=== PATIENT | female | born 1960 | race Caucasian/White ===

== ENCOUNTER 2017-12-17 11:12 | Emergency (ER) | payer MEDICAID ==
[~2017-12-17] VITALS: Ht 162.6 cm; Wt 63.5 kg
[2017-12-17 11:15] VITALS: BP 157/98
--- NOTE | 2017-12-17 11:19 | NUR ---
PT AMBULATED TO ER BED 12
--- NOTE | 2017-12-17 11:25 | NUR ---
57Y/F C/O LEFT TOP MOLAR PAIN RADIATING LEFT SIDE OF FACE X 2 DAYS, HAS NOT SEEN A DENTIST YET. DENIES N/V/D; SKIN IS PINK/WARM/DRY; AAOX4 WITH EVEN AND STEADY GAIT; PATIENT STATES PAIN OF 10/10 AT THIS TIME; VSS; PATIENT POSITIONED FOR COMFORT; HOB ELEVATED; BEDRAILS UP X2; BED DOWN. ER MD MADE AWARE OF PT STATUS.
[2017-12-17 11:41] VITALS: BP 156/97
--- NOTE | 2017-12-17 11:41 | NUR ---
Patient discharged with v/s stable. Written and verbal after care instructions given and explained. Patient alert, oriented and verbalized understanding of instructions. Ambulatory with steady gait. All questions addressed prior to discharge. ID band removed. Patient advised to follow up with PMD. Rx of NAPROSYN AND AMOXICILLIN given. Patient educated on indication of medication including possible reaction and side effects. Opportunity to ask questions provided and answered.
== END 2017-12-17 11:41 | disposition home or self-care (01) ==
LOC: MED 11:12
DX: K05.10 Chronic gingivitis, plaque induced (principal)
CPT/HCPCS: 99283

== ENCOUNTER 2019-02-03 20:36 | Emergency (ER) | payer MEDICAID ==
[~2019-02-03] VITALS: Ht 157.5 cm; Wt 72.3 kg
[2019-02-03 20:39] VITALS: BP 145/90
--- NOTE | 2019-02-03 20:42 | NUR ---
TO [facility] A/W BED , AMBULATORY
--- NOTE | 2019-02-03 20:58 | NUR ---
PT TAKEN TO BED 6
--- NOTE | 2019-02-03 21:10 | NUR ---
59 YO F BIB SON AND DAUGHTER PRESENTS TO ED C/O 04/18 LEFT SIDE FLANK PAIN X 2 DAYS. PT STATES PAIN IS CONSTANT BUT INCREASES WHILE WALKING. PT ALSO C/O MILD NAUSEA, NO VOMITING. PT DENIES FEVER, URINARY BURNING/PAIN OR HEMATURIA. PT STATES SHE HAS BEEN HAVING INTERMITTENT LOOSE STOOL X SEVERAL DAYS. --PT AWAKE, ALERT, CALM, COOPERATIVE. ANSWERING QUESTIONS APPROPRIATELY. BEHAVIOR AGE APPROPRIATE. -- SKIN PINK, WARM, DRY. BREATHING EVEN, UNLABORED. PMH-- DENIES RX-- DENIES
[2019-02-03] MEDS ORDERED: KETOROLAC 15 MG/ML VIAL IVP ONE (22:00)
--- NOTE | 2019-02-03 22:05 | NUR ---
PT REFUSING TORADOL 15 MG IVP. PT STATES "I DON'T WANT AN IV. I JUST WANT TO KNOW IF I HAVE AN INFECTION." DR. DONNELLY MADE AWARE.
[2019-02-03 22:42] LABS: BASOPHILS # (AUTO) 0.1 K/uL (0.00-0.22); EOSINOPHILS # (AUTO) 0.1 K/uL (0-0.4); EOSINOPHILS % (AUTO) 1.4 % (0.0-4.0); HEMATOCRIT 38.1 % (36-48); HEMOGLOBIN 12.8 g/dL (12.0-16.0); LYMPHOCYTES # (AUTO) 2.7 K/uL (2.5-16.5); LYMPHOCYTES % (AUTO) 30.5 % (20.5-51.1); MEAN CORPUSCULAR HEMOGLOBIN 30 pg (27-31); MEAN CORPUSCULAR HGB CONC 34 g/dL (33-37); MEAN CORPUSCULAR VOLUME 90.7 fL (80-94); MONOCYTES # (AUTO) 0.7 K/uL (0.8-1.0); MONOCYTES % (AUTO) 8.1 % (1.7-9.3); NEUTROPHILS # (AUTO) 5.1 K/uL (1.8-7.7); PLATELET COUNT (AUTO) 225 K/uL (140-450); RED CELL DISTRIBUTION WIDTH 12.5 % (11.6-13.7); WHITE BLOOD COUNT (AUTO) 8.7 K/uL (4.8-10.8)
[2019-02-03 22:47] LABS: APPEARANCE,URINE CLOUDY (CLEAR); BILIRUBIN,URINE NEGATIVE (NEGATIVE); BLOOD, URINE NEGATIVE (NEGATIVE); COLOR,URINE YELLOW (YELLOW); LEUKOCYTE ESTERASE ,URINE NEGATIVE (NEGATIVE); NITRITE, URINE NEGATIVE (NEGATIVE); PH,URINE 7.5 (5.0-9.0); UGLUCOSE NEGATIVE (NEGATIVE)
[2019-02-03 23:03] LABS: ANION GAP 11.9 (8-16); CARBON DIOXIDE 24.8 mmol/L (21-32); POTASSIUM 3.7 mmol/L (3.5-5.1)
[2019-02-03 23:15] LABS: ALBUMIN 4.1 g/dL (3.4-5.0); TOTAL BILIRUBIN 0.4 mg/dL (0.0-1.0)
[2019-02-03] MEDS ORDERED: NACL 0.9% 1,000 ML IV ONE (23:40)
--- NOTE | 2019-02-03 23:56 | NUR ---
Dr. Robison examining patient.
[2019-02-04] VITALS: BP 145/90
--- NOTE | 2019-02-04 | NUR ---
Patient discharged with v/s stable. Written and verbal after care instructions given and explained. Patient verbalized understanding. Ambulatory with steady gait. All questions addressed prior to discharge. Advised to follow up with PMD.
== END 2019-02-04 | disposition home or self-care (01) ==
LOC: MED 20:36
DX: R10.9 Unspecified abdominal pain (principal); E83.52 Hypercalcemia
CPT/HCPCS: 36415; 80053; 81003; 85025; 93005; 99284; J1885